=== PATIENT | male | born 1970 | race Caucasian/White ===

== ENCOUNTER 2018-07-10 23:53 | Emergency (ER) | payer OTHER ==
--- NOTE | 2018-07-11 00:24 | ED Physician Documentation ---
PD HPI CHEST PAIN - Stated complaint Stated Complaint: CP/SOA/DIZZY - Chief complaint Chief Complaint: Cardiac - History obtained from History obtained from: Patient - History of Present Illness Timing - onset: How many minutes ago (45) Timing - onset during: Rest (while at rest, sitting at computer at home) Timing - details: Abrupt onset Quality: Tightness Location: Left chest Radiation: No: Jaw, Neck, Back, Abdominal, Left upper extremity, Right upper extremity Improved by: Nothing Worsened by: Other (no apparent exacerbating factors) Associated symptoms: Shortness of air, Diaphoresis, Other (lightheaded) Similar symptoms before: Other (similar, but milder, episode 1-2 weeks ago, spontaneously resolved and thus did not seek medical attention at that time) Recently seen: Not recently seen - Additional information Additional information: symptoms nearly resolved by the time of this H+P Review of Systems Constitutional: reports: Sweats. denies: Fever, Chills Cardiac: reports: Chest pain / pressure. denies: Palpitations, Pedal edema, Calf pain Respiratory: reports: Dyspnea GI: reports: Reviewed and negative Musculoskeletal: denies: Extremity swelling PD PAST MEDICAL HISTORY - Past Medical History Past Medical History: Yes Cardiovascular: None Respiratory: None Neuro: None Endocrine/Autoimmune: None GI: None : None HEENT: None Psych: None Musculoskeletal: Other Derm: None Other Past Medical History: TREMORS... - Past Surgical History Past Surgical History: No - Present Medications Home Medications: Ambulatory Orders Medication Instructions Recorded Confirmed Amoxicillin/Potassium Clav 1 tab 06/03/15 06/03/15 [Amox-Clav 875-125 mg Tablet] - Allergies Allergies/Adverse Reactions: Allergies Allergy/AdvReac Type Severity Reaction Status Date / Time No Known Drug Allergies Allergy Verified 07/11/18 00:04 - Social History Does the pt smoke?: Yes Smoking Status: Current every day smoker Does the pt drink ETOH?: No Does the pt have substance abuse?: No - Immunizations Immunizations are current?: Yes - POLST Patient has POLST: No PD ED PE NORMAL - Vitals Vital signs reviewed: Yes - General General: Alert and oriented X 3, No acute distress, Well developed/nourished - Cardiac Cardiac: RRR, No murmur, No gallop, No rub - Respiratory Respiratory: No respiratory distress, Clear bilaterally - Abdomen Abdomen: Soft, Non tender - Derm Derm: Normal color, Warm and dry - Extremities Extremities: No edema Results - Vitals Vitals: Vital Signs - 24 hr 07/11/18 07/11/18 07/11/18 00:02 00:08 00:41 Temperature 36.1 C L Heart Rate 94 90 Respiratory 17 17 17 Rate Blood Pressure 160/102 H 141/94 H O2 Saturation 98 98 07/11/18 07/11/18 01:01 02:31 Temperature Heart Rate 86 71 Respiratory 16 17 Rate Blood Pressure 136/89 H 136/89 H O2 Saturation 96 99 Oxygen O2 Source Room air - EKG (time done) No standard instances Rate: Rate (enter#) (76) Rhythm: NSR [place]: LAD Intervals: Normal AR QRS: Normal Ischemia: Normal ST segments - Labs Labs: Laboratory Tests 07/11/18 07/11/18 07/11/18 01:00 01:00 01:00 WBC 8.3 RBC 5.72 Hgb 15.0 Hct 44.6 MCV 78.0 L MCH 26.3 L MCHC 33.6 RDW 14.5 Plt Count 199 MPV 10.2 Neut # (Auto) 4.4 Lymph # (Auto) 2.2 Ray # (Auto) 0.7 Eos # (Auto) 0.8 H Baso # (Auto) 0.1 Absolute Nucleated RBC 0.00 Nucleated RBC % 0.0 Sodium 140 Potassium 3.5 Chloride 104 Carbon Dioxide 28 Anion Gap 8.0 BUN 17 Creatinine 1.1 Estimated GFR (MDRD) 71 L Glucose 123 H Calcium 9.4 Total Bilirubin 1.0 AST 25 ALT 29 Alkaline Phosphatase 65 Troponin I < 0.04 Total Protein 7.2 Albumin 4.4 Globulin 2.8 Albumin/Globulin Ratio 1.6 Lipase 46 - Rads (name of study) chest xray Radiology: Prelim report reviewed, See rad report PD MEDICAL DECISION MAKING - ED course Complexity details: reviewed results, re-evaluated patient, considered differential, d/w patient Departure - Departure Disposition: 01 Home, Self Care Clinical Impression: Chest pain Condition: Good Instructions: ED Chest Pain Atypical Unkn Cause Follow-Up: HANK Sparks [Provider Group] (Call to arrange for next available appointment) Discharge Date/Time: 07/11/18 02:33
[2018-07-11 01:02] VITALS: BP 136/89
--- NOTE | 2018-07-11 01:04 | XRAY Report ---
Reason: chest pain Procedure Date: 07/11/2018 Accession Number: [id number] / [id number] Procedure: XR - Chest 2 View X-Ray CPT Code: 70870 FULL RESULT: EXAM: CHEST RADIOGRAPHY EXAM DATE: 07/11/2018 12:52 AM. CLINICAL HISTORY: Chest pain. COMPARISON: None. TECHNIQUE: 2 views. FINDINGS: Lungs/Pleura: No focal opacities evident. No pleural effusion. No pneumothorax. Normal volumes. Mediastinum: Heart and mediastinal contours are unremarkable. Other: None. IMPRESSION: Normal 2-view chest radiography. [facility]
[2018-07-11 01:10] LABS: BASOPHILS # (AUTO) 0.1 10^3/uL (0.0-0.1); BASOPHILS % (AUTO) 1.7 %; EOSINOPHILS # (AUTO) 0.8 10^3/uL (0.0-0.7); LYMPHOCYTES # (AUTO) 2.2 10^3/uL (1.5-3.5); MEAN CORPUSCULAR HEMOGLOBIN 26.3 pg (27.0-31.0); MEAN CORPUSCULAR HGB CONC 33.6 g/dL (32.0-36.0); MEAN PLATELET VOLUME 10.2 fL (7.4-11.4); MONOCYTES # (AUTO) 0.7 10^3/uL (0.0-1.0); MONOCYTES % (AUTO) 8.5 %; NEUTROPHILS # (AUTO) 4.4 10^3/uL (1.5-6.6); NEUTROPHILS % (AUTO) 52.8 %; PLT - PLATELET COUNT 199 10^3/uL (130-450); RED BLOOD COUNT 5.72 10^6/uL (4.70-6.10); RED CELL DISTRIBUTION WIDTH 14.5 % (12.0-15.0); WHITE BLOOD COUNT 8.3 x10^3/uL (4.8-10.8)
[2018-07-11 01:22] LABS: ALBUMIN 4.4 g/dL (3.2-5.5); ALBUMIN/GLOBULIN RATIO 1.6 (1.0-2.2); CALCIUM 9.4 mg/dL (8.5-10.3); CREATININE 1.1 mg/dL (0.6-1.2); TOTAL PROTEIN 7.2 g/dL (6.7-8.2)
== END 2018-07-11 02:33 | disposition home or self-care (01) ==
LOC: ED 23:53
DX: R07.89 Other chest pain (principal); R42 Dizziness and giddiness; F17.200 Nicotine dependence, unspecified, uncomplicated
CPT/HCPCS: 36415; 71046; 80053; 83690; 84484; 85025; 93005; 99283; 99284

== ENCOUNTER 2019-05-01 10:25 | Outpatient (CLI) | payer OTHER ==
--- NOTE | 2019-05-03 11:01 | Ultrasound Report ---
Reason: NICOTINE DEPENDENCE CIGARETTES, CLAUDICATION Procedure Date: 05/01/2019 Accession Number: [id number] / [id number] Procedure: US - Ankle Brachial Index CPT Code: Final Report FULL RESULT: EXAM: BILATERAL ANKLE/BRACHIAL INDEX EXAM DATE: 05/01/2019 11:20 AM. CLINICAL HISTORY: NICOTINE DEPENDENCE CIGARETTES, CLAUDICATION. COMPARISON: None. TECHNIQUE: A blood pressure cuff and duplex ultrasound was used to evaluate the arterial pressures in the arms and ankle. Duplex ultrasound images of the posterior tibial and dorsalis pedis arteries were obtained bilaterally. FINDINGS: Brachial pressure: Right brachial artery: 105/73 mmHg Left brachial artery: 110/70 mmHg, index 1.00 Right ankle pressures: 131/81 (index 1.2) Left ankle pressures: 133/71 (index 1.2). Triphasic waveforms are seen at the [employer] and DPA bilaterally. IMPRESSION: 1. Right ankle/brachial index: 1.2. 2. Left ankle/brachial index: 1.2. ANKLE/BRACHIAL INDEX REFERENCE STANDARDS 1.0-1.4: Normal 0.90-0.99: Borderline < 0.9: Abnormal [facility]
== END 2019-05-01 10:26 | disposition home or self-care (01) ==
LOC: DI 10:25
PROVIDERS: ATTEND Family Medicine
DX: F17.210 Nicotine dependence, cigarettes, uncomplicated (principal); L81.8 Other specified disorders of pigmentation; I99.9 Unspecified disorder of circulatory system
CPT/HCPCS: 93922

== ENCOUNTER 2023-01-30 08:09 | Outpatient (CLI) | payer OTHER ==
--- NOTE | 2023-01-30 09:27 | XRAY Report ---
PROCEDURE: Chest 2 View X-Ray INDICATIONS: UPPER RESPIRATORY INFECTION TECHNIQUE: 2 views of the chest were acquired. COMPARISON: Chest x-ray 07/11/2018. FINDINGS: Surgical changes and devices: None. Lungs and pleura: No pleural effusions or pneumothorax. Lungs are clear. Mediastinum: Mediastinal contours appear normal. Heart size is normal. Bones and chest wall: No suspicious bony lesions. Overlying soft tissues appear unremarkable. IMPRESSION: No acute cardiopulmonary process. Reviewed by: Frank Wu MD on 01/30/2023 9:26 AM PDT Approved by: Frank Wu MD on 01/30/2023 9:26 AM PDT Station ID: [id number]
== END 2023-01-30 08:10 | disposition home or self-care (01) ==
LOC: DI 08:09
PROVIDERS: ATTEND Nurse Practitioner
DX: J06.9 Acute upper respiratory infection, unspecified (principal)